=== PATIENT | female | born 1990 | race Caucasian/White ===

== ENCOUNTER 2016-12-07 15:17 | Outpatient (CLI) | payer MEDICAID ==
[~2016-12-07] VITALS: Ht 160 cm; Wt 67.3 kg
[~2016-12-07 15:17] MED LIST: METR500T PO; NITR-58 PO
[2016-12-07 15:36] VITALS: Ht 160 cm; Wt 67.3 kg
[2016-12-07 15:37] VITALS: BP 105/56; PULSE 69
[2016-12-07] MEDS ORDERED: PRENAT PO (15:38)
[2016-12-07 16:00] LABS: ADD UMIC YES; URINE BILIRUBIN (Dip) NEGATIVE (NEGATIVE); URINE BLOOD (Dip) TRACE (NEGATIVE); URINE COLOR LT. YELLOW (YELLOW); URINE GLUCOSE (Dip) NEGATIVE (NEGATIVE); URINE KETONES (Dip) NEGATIVE (NEGATIVE); URINE LEUKOCYTE ESTERASE (Dip) 1+ (NEGATIVE); URINE NITRITE (Dip) NEGATIVE (NEGATIVE); URINE TOTAL PROTEIN (Dip) NEGATIVE (NEGATIVE); URINE UROBILINOGEN (Dip) 0.2 E.U./dL (0.1-1.0)
--- NOTE | 2016-12-07 16:34 | RADRPT ---
PROCEDURE: Limited obstetric ultrasound CLINICAL INDICATION: Pain TECHNIQUE: Multiple transverse and longitudinal grayscale images of the pelvis were obtained garcia sabdominally and transvaginally.. COMPARISON: same day FINDINGS: The cervix is closed with a length of 4.1 cm. There is a single viable intrauterine gestation. Cardiac activity is present with 165 beats per min [place]. There is a breech presentation. The placenta is posterior. There is no evidence for an abruption or placenta previa. RPTAT: AA IMPRESSION: Cervix length measures 4.1 cm. .Hermes Chen MD, Date Time Electronically viewed and signed by .Hermes Chen MD, on 12/07/2016 16:34 .S/
[2016-12-07 16:35] LABS: BACTERIA,URINE RARE; SQUAMOUS EPITHELIAL CELL,UR FEW; URINE RBCS 0-2 /HPF (0)
--- NOTE | 2016-12-07 21:04 | CONS ---
Date/Time of Note Date/Time of Note DATE: 12/07/16 TIME: 21:00 Consultation Date/Type/Reason Admit Date/Time December 07, 2016 OB triage consult Reason for Consultation This patient is a 24 years old 3 para 2 both spontaneous vaginal delivery her estimated date of confinement is 02/23/2017 which makes her 28 weeks and 6 days now she came in complaining of abdominal pain on examination her general physical examination was normal abdomen was soft uterus was so heart tone was normal no contraction was noted under general vital signs her blood pressure was 105/56, pulse rate 60, respiration 18. And temperature 98.6 Laboratory study her urinalysis was completely normal On ultrasound study the cervix was closed with 4.1 cm in length there was a single viable uterine gestation with heart tone of 161 5 in breech presentation placenta was posterior Laboratory Tests Test 12/07/16 15:45 Urine Color LT. YELLOW Urine Clarity CLEAR Urine pH 6.5 Urine Specific [place] <=1.005 Urine Ketones NEGATIVE Urine Nitrite NEGATIVE Urine Bilirubin NEGATIVE Urine Urobilinogen 0.2 E.U./dL Urine Leukocyte Esterase 1+ Urine Microscopic RBC 0-2/HPF Urine Microscopic WBC 2-5/HPF Urine Squamous Epithelial Cells FEW Urine Bacteria RARE Urine Hemoglobin TRACE Urine Glucose NEGATIVE% Urine Total Protein NEGATIVE Constitutional: No chills, No diaphoresis, No disoriented, No febrile, No improved, No no complaints, No other, No poor po, No requiring IVF, No requiring O2 Eyes: No discharge, No no complaints, No other, No pain, No redness, No visual change ENT: No bleeding, No congestion, No discharge, No dysphagia, No no complaints, No other, No pain, No sore throat Respiratory: No cough, No no complaints, No other, No pain, No pleuritic pain, No shortness of breath, No sputum, No wheezing Cardiovascular: No chest pain, No edema, No lightheadedness, No no complaints, No orthopenea, No other, No palpitations, No paroxysmal nocturnal dyspnea Gastrointestinal: No blood, No constipation, No decreased appetite, No diarrhea , No flatus, No nausea, No no complaints, No other, No pain, No passing stool, No vomiting Genitourinary: other (Pelvic exam was not performed due to lack of contraction) , No bleeding, No discharge, No dysuria, No flank pain, No hematuria, No no complaints Musculoskeletal: No back pain, No bone/joint pain, No neck pain, No no complaints, No other, No restricted range of motion, No swelling Skin: No bruising, No erythema, No laceration, No no complaints, No other, No pruritis, No rash, No skin lesions Neurologic: other (Knee-jerk reflex were no), No confusion, No dizziness, No focal-weakness, No headache, No no complaints , No seizure, No syncope Additional Comments With these negative findings patient was reassured and was discharged home to be followed in her clinic and return to the triage area in case of a contractions bleeding or any other major complaint Social History Smoking Status: Never smoker Exam/Review of Systems Vital Signs Vitals Vital Signs Date Time Temp Pulse Resp B/P Pulse Ox O2 Delivery O2 Flow Rate FiO2 12/07/16 15:37 98.6 69 105/56 Results Results 24 hrs Laboratory Tests Test 12/07/16 15:45 Urine Color LT. YELLOW Urine Clarity CLEAR Urine pH 6.5 Urine Specific [place] <=1.005 L Urine Ketones NEGATIVE Urine Nitrite NEGATIVE Urine Bilirubin NEGATIVE Urine Urobilinogen 0.2 E.U./dL Urine Leukocyte Esterase 1+ H Urine Microscopic RBC 0-2 Urine Microscopic WBC 2-5 Urine Squamous Epithelial Cells FEW Urine Bacteria RARE Urine Hemoglobin TRACE Urine Glucose NEGATIVE Urine Total Protein NEGATIVE LILIANA RILEY MD Dec 07, 2016 21:04
== END 2016-12-07 16:55 | disposition home or self-care (01) ==
LOC: L-D 15:17 → OBT 15:17
PROVIDERS: ATTEND Obstetrics & Gynecology
DX: O26.892 Other specified pregnancy related conditions, second trimester (principal); R10.9 Unspecified abdominal pain; Z3A.28 28 weeks gestation of pregnancy
CPT/HCPCS: 76817; 81001; 87086; Z7500; G0463

== ENCOUNTER 2017-02-15 12:09 | Outpatient (CLI) | payer MEDICAID ==
[~2017-02-15] VITALS: Ht 167.6 cm; Wt 74.7 kg
[~2017-02-15 12:09] MED LIST changes: -METR500T PO; -NITR-58 PO; +PRENAT PO
[2017-02-15 12:37] VITALS: BP 100/60; PULSE 78; RESP 18; Ht 167.6 cm; Wt 74.7 kg
--- NOTE | 2017-02-15 15:21 | RADRPT ---
PROCEDURE: US OB biophysical profile. CLINICAL INDICATION: decreased movements, contractions TECHNIQUE: Multiple sonographic images of the pelvis were obtained. The images were reviewed on a PACS workstation. COMPARISON: No prior studies are available for comparison. FINDINGS: There is a single viable intrauterine gestation. Cardiac activity is present with 137 beats per min [place]. There is a vertex presentation. The placenta is posterior. There is no evidence of placental abruption. There is a normal amount of amniotic fluid with an MIRELLA = 17.7 cm. Biophysical profile: movement 2/2 tone 2/2. breathing 2/2 MIRELLA 2/2 Total 02/06 RPTAT: AA . IMPRESSION: Normal biophysical profile. . .Hermes Chen MD, MD Date Time Electronically viewed and signed by .Hermes Chen MD, MD on 02/15/2017 15:21 .S/
--- NOTE | 2017-02-15 15:39 | CONS ---
Date/Time of Note Date/Time of Note DATE: 02/15/17 TIME: 15:34 Consultation Date/Type/Reason Admit Date/Time February 15, 2017 OB triage consult Reason for Consultation This patient is a 26 years old 3 para 2 ,both of her previous delivery by spontaneous vaginal, came in the triage area complaining of uterine contractions. Her estimated date of confinement is February 25 which makes her 38 weeks and 6 days now Her lab works so far in the clinic were normal ,blood pressure O+ ,hepatitis B surface antigen ,HIV ,RPR, GBS negative or nonreactive, rubella immune , Chlamydia gonorrhea were also both negative on examination she is a well-developed well-nourished patient . after her general vital signs are normal ;with blood pressure of 100/60 ,pulse 78, respiration 18, temperature 97, and oxygen saturation of 97 in room temperature Her abdomen was soft with occasional contractions, heart rate tracing were normal with good variability and occasional acceleration no decelerations , Bimanual pelvic examination was performed; the cervix was a 2 cm,60% ,-2 station , membrane was intact Constitutional: No chills, No diaphoresis, No disoriented, No febrile, No improved, No no complaints, No other, No poor po, No requiring IVF, No requiring O2 Eyes: No discharge, No no complaints, No other, No pain, No redness, No visual change ENT: No bleeding, No congestion, No discharge, No dysphagia, No no complaints, No other, No pain, No sore throat Respiratory: No cough, No no complaints, No other, No pain, No pleuritic pain, No shortness of breath, No sputum, No wheezing Cardiovascular: No chest pain, No edema, No lightheadedness, No no complaints, No orthopenea, No other, No palpitations, No paroxysmal nocturnal dyspnea Gastrointestinal: No blood, No constipation, No decreased appetite, No diarrhea , No flatus, No nausea, No no complaints, No other, No pain, No passing stool, No vomiting Genitourinary: other (Her pelvic exam as I mentioned was 2 cm dilated 60% effaced at -2 station of the head with intact membrane), No bleeding, No discharge, No dysuria, No flank pain, No hematuria, No no complaints Musculoskeletal: No back pain, No bone/joint pain, No neck pain, No no complaints, No other, No restricted range of motion, No swelling Skin: No bruising, No erythema, No laceration, No no complaints, No other, No pruritis, No rash, No skin lesions Neurologic: No confusion, No dizziness, No focal-weakness, No headache, No no complaints, No other, No seizure, No syncope Endocrine: No dry skin, No no complaints, No other, No polydypsia, No polyuria , No temp intolerance Additional Comments On ultrasound studies the report is a single viable intrauterine gestation with cardiac activity 137 bpm ,in vertex presentation ,placenta was posterior , amniotic fluid index is 17.7 cm, biophysical profile 02/06 With these positive finding patient was reassured and she will go home and 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
== END 2017-02-15 15:45 | disposition home or self-care (01) ==
LOC: OBT 12:09 → L-D 12:10 → OBT 15:45 → EDSTATUS 02-23 12:07
PROVIDERS: ATTEND Obstetrics & Gynecology
DX: O62.9 Abnormality of forces of labor, unspecified (principal); Z3A.38 38 weeks gestation of pregnancy
CPT/HCPCS: 76818; Z7500; G0463

== ENCOUNTER 2017-02-20 08:10 | Inpatient (IN) | payer MEDICAID ==
[~2017-02-20] VITALS: Ht 160 cm; Wt 74.9 kg
[~2017-02-20 08:10] MED LIST changes: +METR500T PO; +NITR-58 PO; +PREN1TAB62 PO
[2017-02-20] MEDS ORDERED: PRENAT PO (08:36)
[2017-02-20] MEDS ORDERED: FOLI-49 PO (08:36)
[2017-02-20 08:37] VITALS: Ht 160 cm; Wt 74.9 kg
[2017-02-20 08:38] VITALS: BP 117/71; PULSE 75; RESP 18
--- NOTE | 2017-02-20 09:09 | TRIAGE ---
OB Triage Datetime Report Generated by CPN: 02/20/2017 09:09 Datetime: 02/20/2017 08:46 Vaginal Exam Dilatation (cms): 5.0 Effacement (%): 80 Station: -2 Exam By: KHEMANI Vaginal Bleeding: None Cervix, Consistency: Soft Cervix, Position: Midposition Presentation 'A': Cephalic Datetime: 02/20/2017 08:38 Labor Evaluation Monitor Mode: External Heart Rate Monitor Mode: External US Datetime: 02/20/2017 08:22 Time of Arrival: 02/20/2017 08:05 EGA: 39.4 Arrived By: Ambulatory Arrived From: Home Chief Complaint: PT HERE C/O UC'S SINCE O530 Movement: Present Contractions: Irregular Rupture of Membranes: Denies Vaginal Bleeding: None Vaginal Discharge: Denies Recent Sexual Intercouse: Denies Abdominal Trauma: Not Applicable Patient Complaints: Contractions; Cramping; Back Pain Time Provider Notified: 02/20/2017 08:49 Provider Notified: ESHAGHIAN Initial Plan: EFM, SVE Datetime: 02/15/2017 12:35 Fall Risk Assessment Fall Score: 0 Fall Risk Score Definition: No Risk: No action required Datetime: 02/15/2017 12:34 EGA: 38.6 Datetime: 12/07/2016 15:33 EGA: 28.6 Fall Risk Assessment Fall Score: 0 Fall Risk Score Definition: No Risk: No action required
[2017-02-20] MEDS ORDERED: LACTATED RINGER'S 1,000 ML IV SCH (10:02)
[2017-02-20] MEDS ORDERED: LACTATED RINGER'S 1,000 ML IV PRN (10:02)
[2017-02-20] MEDS ORDERED: MISOPROSTOL 200 MCG TAB PR PRN ×2 (10:30→14:30)
[2017-02-20] MEDS ORDERED: CARBOPROST 250 MCG INJ IM PRN ×2 (10:30→14:30)
[2017-02-20] MEDS ORDERED: OXYTOCIN 30 UNITS/LR 500 ML IV PRN ×2 (10:30→14:30)
[2017-02-20] MEDS ORDERED: BUTORPHANOL 2 MG INJ IV PRN (10:30)
[2017-02-20] MEDS ORDERED: LIDOCAINE 1% (MPF) 30 ML INJ INJ PRN (10:30)
[2017-02-20] MEDS ORDERED: OXYTOCIN 30 UNITS/LR 500 ML IV SCH ×2 (10:30)
[2017-02-20] MEDS ORDERED: IBUPROFEN 600 MG TAB PO PRN (10:30)
[2017-02-20] MEDS ORDERED: METHYLERGONOVINE 0.2 MG INJ IM PRN ×2 (10:30→14:30)
[2017-02-20 10:49] LABS: BASOPHILS % 0.3 % (0.0-2.0); EOSINOPHILS # 0.1 10^3/ul (0.0-0.5); EOSINOPHILS % 0.8 % (0.0-7.0); HEMATOCRIT 39.1 % (37.0-47.0); HEMOGLOBIN 13.3 g/dl (12.0-16.0); LYMPHOCYTES # 3.2 10^3/ul (0.8-2.9); LYMPHOCYTES % 26.4 % (15.0-51.0); MEAN CORPUSCULAR HEMOGLOBIN 29.8 pg (29.0-33.0); MEAN CORPUSCULAR VOLUME 87.7 fl (82.0-101.0); MEAN PLATELET VOLUME 12.5 fl (7.4-10.4); MONOCYTE # 0.8 10^3/ul (0.3-0.9); MONOCYTES % 6.4 % (0.0-11.0); NEUTROPHILS % 65.8 % (39.0-77.0); PLATELET COUNT 225 10^3/UL (140-415); RED BLOOD COUNT 4.46 10^6/ul (4.20-5.40); RED CELL DISTRIBUTION WIDTH 13.6 % (11.5-14.5)
[2017-02-20 10:53] LABS: INR 0.86; PROTIME 11.7 Sec (12.2-14.2); PT RATIO 0.9
[2017-02-20 10:54] LABS: PARTIAL THROMBOPLASTIN TIME 27.9 Sec (25.0-35.0)
[2017-02-20] MEDS ORDERED: FENTAnyl 50 MCG/ML VIAL ONE (13:43)
[2017-02-20] MEDS ORDERED: LIDOCAINE 2%/EPI 30 ML INJ ONE (13:43)
[2017-02-20] MEDS ORDERED: FENTAnyl 2MCG/ML-ROPIV 0.2% 100 ML ONE (13:49)
--- NOTE | 2017-02-20 14:08 | PREOPHP ---
DATE OF ADMISSION: 02/20/2017 HISTORY OF PRESENT ILLNESS: Ms. Irma Godinez is a 26- year-old, 3, para 2, EDC 02/25/2017, intrauterine at 39 weeks and 3 days' gestational age, presented to triage in labor, with regular contractions since early this morning. She denies any vaginal bleeding or discharge. Her care took place at [facility]. ALLERGIES: NONE. MEDICATIONS: vitamins. PAST SURGICAL HISTORY: None. OBSTETRICAL HISTORY: Times 2 vaginal deliveries. GYNECOLOGICAL HISTORY: 14, regular, 3-4 days. Denies any sexually transmitted disease. Sexually active with 1 partner. SOCIAL HISTORY: Denies any smoking, drugs, or alcohol. FAMILY HISTORY: None. REVIEW OF SYSTEMS: All within normal except History of Present Illness. PHYSICAL EXAMINATION: HEENT: Within normal. LUNGS: CTA bilateral. CARDIAC: S1, S2. Regular rhythm. ABDOMEN: Gravid, nontender. Negative CVA bilateral. EXTREMITIES: Negative edema. No calf tenderness. VAGINAL: Exam on admission, 5, 70, -2. heart tracing category 1. TOCO contractions every 3-4 minutes. ASSESSMENT: Intrauterine at term, in labor. PLAN: Expectant vaginal delivery. Dictated By: Tu Reid MD /disha/lalitha /Document#: [id number] NEEMA
[2017-02-20] MEDS: LACTATED RINGER'S 1,000 ML IV* SCH ×2 (14:23→22:23)
--- NOTE | 2017-02-20 14:23 | LDN ---
Date/Time of Note Date/Time of Note DATE: 02/20/17 TIME: 14:22 Delivery Summary Weeks of Gestation 39 Placenta Delivered: Spontaneously Meconium: none Episiotomy: No Sponge & Needle done & correct: Yes All needle counts correct: Yes Any foreign bodies felt in the: No Problems: Infant Delivery Information Sex Sex: male Apgars 1 Minute: 9 5 Minute: 9 Suctioning Nose & mouth suctioned at jorge: No Delee suction performed: No Umbilical Cord Umbilical cord with: 3 Vessels Cord presentations: no nuchal cord Cord Blood was obtained: Yes CANDACE LAW MD Feb 20, 2017 14:23
[2017-02-20] MEDS ORDERED: BENZOCAINE 20% 56 ML SPRAY TOP PRN (14:30)
[2017-02-20] MEDS ORDERED: OXYCODONE/ASPIRIN (4.88/325) TAB PO PRN (14:30)
[2017-02-20] MEDS ORDERED: MINERAL OIL LIGHT 10 ML VIAL TOP ONE ×2 (14:30)
[2017-02-20] MEDS ORDERED: ONDANSETRON 4 MG INJ IV PRN (14:30)
[2017-02-20] MEDS ORDERED: WITCH HAZEL/GLYCERIN PAD PR PRN (14:30)
[2017-02-20 17:00] VITALS: BP 108/58; PULSE 81; RESP 19
[2017-02-20 17:30] VITALS: BP 105/58; PULSE 86; RESP 18
[2017-02-20] MEDS: IBUPROFEN 600 MG TAB PO SCH ×2 (17:47→23:52)
[2017-02-20 20:00] VITALS: BP 104/63; PULSE 72; RESP 20
[2017-02-20] MEDS: OXYCODONE/ASPIRIN (4.88/325) TAB PO PRN (23:06)
[2017-02-21] VITALS: BP 110/60; PULSE 62; RESP 18
[2017-02-21 04:00] VITALS: BP 112/62; PULSE 68; RESP 20
[2017-02-21] MEDS: IBUPROFEN 600 MG TAB PO SCH ×3 (05:38→17:14)
[2017-02-21 07:55] LABS: BASOPHIL # 0.1 10^3/ul (0.0-0.1); BASOPHILS % 0.4 % (0.0-2.0); EOSINOPHILS # 0.2 10^3/ul (0.0-0.5); EOSINOPHILS % 1.2 % (0.0-7.0); HEMATOCRIT 32.1 % (37.0-47.0); HEMOGLOBIN 11.3 g/dl (12.0-16.0); LYMPHOCYTES # 3.7 10^3/ul (0.8-2.9); LYMPHOCYTES % 28.8 % (15.0-51.0); MEAN CORPUSCULAR HGB CONC 35.2 g/dl (32.0-37.0); MEAN CORPUSCULAR VOLUME 88.2 fl (82.0-101.0); MEAN PLATELET VOLUME 12.2 fl (7.4-10.4); MONOCYTE # 0.9 10^3/ul (0.3-0.9); MONOCYTES % 6.5 % (0.0-11.0); NEUTROPHILS % 62.6 % (39.0-77.0); PLATELET COUNT 174 10^3/UL (140-415); RED BLOOD COUNT 3.64 10^6/ul (4.20-5.40); RED CELL DISTRIBUTION WIDTH 13.7 % (11.5-14.5)
[2017-02-21 08:10] VITALS: BP 101/52; PULSE 60; RESP 19
[2017-02-21 12:15] VITALS: BP 101/49; PULSE 59; RESP 20
--- NOTE | 2017-02-21 13:16 | QN ---
Documentation Comment Progress note day 1 Patient seen and evaluated positive ambulation tolerating diet positive flatulence positive bowel movement Awake alert and oriented 3 Vital signs stable afebrile Abdomen soft nontender negative distention uterine fundus below umbilicus Extremity negative edema no calf tenderness Assessment status post vaginal delivery day 1 stable afebrile Plan iron supplement discharge home tomorrow and follow-up in the office in 3 weeks CANDACE LAW MD Feb 21, 2017 13:15
--- NOTE | 2017-02-21 13:16 | PD.PPDC ---
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
--- NOTE | 2017-02-21 13:18 | DS ---
Date/Time of Note Date/Time of Note DATE: 02/21/17 TIME: 13:17 Obstetrical Discharge Record Final Diagnosis Final Diagnosis: Term delivered Vaginal Delivery Obstetrical Delivery: Spontaneous Condition on Discharge Physical Assessment Voiding: Yes Bowel Movement: Yes Breast: Soft, non-tender, Filling Fundus: Firm Calf Tenderness: No Patient Condition: Fair CANDACE LAW MD Feb 21, 2017 13:18
[2017-02-21 16:15] VITALS: BP 110/55; PULSE 65; RESP 18
[2017-02-21] MEDS: OXYCODONE/ASPIRIN (4.88/325) TAB PO PRN (17:15)
[2017-02-21 20:00] VITALS: BP 112/55; PULSE 66; RESP 18
[2017-02-21] MEDS: FERROUS SULFATE (EC) 325 MG TAB PO SCH (21:19)
[2017-02-22] MEDS: IBUPROFEN 600 MG TAB PO SCH ×3 (00:24→11:50)
[2017-02-22] MEDS: OXYCODONE/ASPIRIN (4.88/325) TAB PO PRN (03:36)
[2017-02-22 04:00] VITALS: BP 104/53; PULSE 59; RESP 18
[2017-02-22 08:15] VITALS: BP 90/48; PULSE 57; RESP 16
[2017-02-22] MEDS: FERROUS SULFATE (EC) 325 MG TAB PO SCH (09:39)
== END 2017-02-22 16:39 | disposition home or self-care (01) | DRG 775 ==
LOC: OBT 08:10 → L-D 08:10 → OBT 08:42 → L-D 08:57 → PP1 16:46
PROVIDERS: ADMIT Obstetrics & Gynecology; ATTEND Obstetrics & Gynecology
PROC: 10E0XZZ Delivery of Products of Conception, External Approach (ICD-10-PCS; principal; 2017-02-20)
DX: O80 Encounter for full-term uncomplicated delivery (principal); Z37.0 Single live birth; Z3A.39 39 weeks gestation of pregnancy
CPT/HCPCS: 36415; 62319; 85025; 85610; 85730; 86592; 86900; 86901; 87340; G0463; J0595; J3010; J7120

== ENCOUNTER 2017-06-27 01:46 | Emergency (ER) | END 2017-06-27 08:09 | disposition home or self-care (01) ==

== ENCOUNTER 2017-08-15 17:46 | Emergency (ER) | END 2017-08-15 22:25 | disposition home or self-care (01) ==

== ENCOUNTER 2018-01-03 14:22 | Emergency (ER) | END 2018-01-03 16:54 | disposition home or self-care (01) ==

== ENCOUNTER 2018-07-21 04:39 | Emergency (ER) | payer MEDICAID ==
[~2018-07-21] VITALS: Wt 57.7 kg
[~2018-07-21 04:39] MED LIST changes: +CEPH-443 PO; +HYDR-4011 PO; +IBUP-1542 PO; +METH750T93 PO; -METR500T PO; +NAPR-688 PO; -NITR-58 PO; -PREN1TAB62 PO
[2018-07-21 04:41] VITALS: BP 114/69; PULSE 66; RESP 18
[2018-07-21] MEDS ORDERED: KETOROLAC 30 MG INJ IM STA (04:57)
--- NOTE | 2018-07-21 05:14 | ERD ---
ER Documentation Chief Complaint Chief Complaint DYSURIA X'S 1 DAY HPI This is a 27-year-old female who presents to the emergency department with complaints of dysuria, hematuria for about a day. LMP: June 23, 2018. . Denies headache, head injury, loss of consciousness, dizziness, neck pain, neck stiffness, throat pain, difficulty swallowing, difficulty breathing lying flat, shoulder pain, chest pain, back pain, abdominal pain, nausea, vomiting, constipation, diarrhea, or possibility being , loss of bowel and bladder control, trauma, injury, falls, difficulty walking due to pain, numbness or tingling sensation, calf pain, recent travel, recent major surgery in the last 3 weeks, calf pain, recent long travel, recent exposure to any illness, recent antibiotic use in the last 3 months, fever, chills, seizures. Past medical history: Surgical history: Social: Denies smoking, use of alcoholic beverages, use of illegal drugs. ROS All systems reviewed and are negative except as per history of present illness. Medications Home Meds Active Scripts Ciprofloxacin Hcl* (Ciprofloxacin Hcl*) 500 Mg Tablet, 500 MG PO BID for 5 Days, #10 TAB Prov:MELY ZAMORA MD 07/24/18 Ondansetron Hcl* (Zofran*) 4 Mg Tablet, 4 MG PO Q8H PRN for NAUSEA AND/OR VOMITING, #30 TAB Prov:PASILATRAE ALAN F 07/21/18 Acetaminophen* (Tylophen*) 500 Mg Capsule, 1 CAP PO Q6H PRN for PAIN AND OR ELEVATED TEMP, #20 CAP Prov:PASILABANTRAE F 07/21/18 Ibuprofen* (Motrin*) 600 Mg Tab, 600 MG PO Q6H PRN for PAIN AND OR ELEVATED TEMP, #30 TAB Prov:PASILATRAE ALAN F 07/21/18 Phenazopyridine Hcl* (Pyridium*) 200 Mg Tab, 200 MG PO TID PRN for URINARY PAIN, #6 TAB Prov:PASILABANTRAE F 07/21/18 Cephalexin* (Keflex*) 500 Mg Capsule, 500 MG PO TID for 7 Days, CAP Prov:PASILABANTRAE F 07/21/18 Ibuprofen* (Motrin*) 600 Mg Tab, 600 MG PO Q6, #20 TAB Prov:PHOEBE SHEETS MD 01/03/18 Cephalexin* (Keflex*) 500 Mg Capsule, 500 MG PO QID for 7 Days, CAP Prov:PHOEBE SHEETS MD 01/03/18 Hydrocodone/Acetaminophen ([place] 5-325 Tablet) 1 Each Tablet, 1 EACH PO Q6, #20 TAB Prov:GIANLUCA CROW DO 08/15/17 Naproxen* (Naproxen*) 500 Mg Tablet, 500 MG PO BID PRN for PAIN, #20 TAB Prov:GIANLUCA CROW DO 08/15/17 Methocarbamol* (Robaxin*) 750 Mg Tablet, 750 MG PO Q6H PRN for MUSCLE SPASMS, #17 TAB Prov:GIANLUCA CROW DO 08/15/17 Cephalexin* (Keflex*) 500 Mg Capsule, 500 MG PO TID for 7 Days, CAP Prov:JONO DELGADO PA-C 06/27/17 Reported Medications Multivit/Min/Fol Ac/Iron/Pren* ( S*) 1 Tab Tab, 1 TAB PO DAILY, TAB 02/20/17 Allergies Allergies: Coded Allergies: No Known Allergy (Unverified , 06/27/17) PMhx/Soc Medical and Surgical Hx: pt denies Medical Hx, pt denies Surgical Hx History of Surgery: No Anesthesia Reaction: No Hx Neurological Disorder: No Hx Respiratory Disorders: No Hx Cardiac Disorders: No Hx Psychiatric Problems: No Hx Miscellaneous Medical Probl: No Hx Alcohol Use: No Hx Substance Use: No Hx Tobacco Use: No Smoking Status: Never smoker Physical Exam Vitals Physical Exam Const: No acute distress Head: Atraumatic Eyes: Normal Conjunctiva ENT: Normal External Ears, Nose and Mouth. Neck: Full range of motion. No meningismus. Resp: Clear to auscultation bilaterally Cardio: Regular rate and rhythm, no murmurs Abd: Soft, non tender, non distended. Normal bowel sounds. Negative Good sign. Negative Sly sign(heel-jar test). Negative Rovsing sign. Negative psoas signs. Able to jump 10 times without developing lower abdominal pain. Skin: No petechiae or rashes Back: No midline or flank tenderness. no CVA tenderness. Ext: No cyanosis, or edema Neur: Awake and alert. No neurological deficits. Psych: Normal Mood and Affect Result Diagram: 07/21/18 0521 07/21/18 0521 Results 24 hrs Laboratory Tests Test 07/21/18 04:53 07/21/18 05:04 07/21/18 05:05 07/21/18 05:21 Urine Color RED Urine Clarity CLEAR Urine pH 7.0 Urine Specific 1.001 [place] Urine Ketones NEGATIVE mg/dL Urine Nitrite NEGATIVE mg/dL Urine Bilirubin NEGATIVE mg/dL Urine NEGATIVE mg/dL Urobilinogen Urine Leukocyte 3+ Sriram/ul Esterase Urine Microscopic 1 /HPF RBC Urine Microscopic 51 /HPF WBC Urine Squamous FEW /HPF Epithelial Cells Urine Bacteria FEW /HPF Urine Hemoglobin 3+ mg/dL Urine Glucose NEGATIVE mg/dL Urine Total 1+ mg/dl Protein Bedside Urine pH 7.0 (LAB) Bedside Urine 1+ Protein (LAB) Bedside Urine Negative Glucose (UA) Bedside Urine Negative Ketones (LAB) Bedside Urine 3+ Blood Bedside Urine Negative Nitrite (LAB) Bedside Urine 3+ Leukocyte Esteras e (L POC Beta HCG, NEGATIVE Qualitative White Blood Count 12.3 10^3/ul Red Blood Count 4.61 10^6/ul Hemoglobin 13.4 g/dl Hematocrit 41.0 % Mean Corpuscular 88.9 fl Volume Mean Corpuscular 29.1 pg Hemoglobin Mean Corpuscular 32.7 g/dl Hemoglobin Concen t Red Cell 13.2 % Distribution Width Platelet Count 233 10^3/UL Mean Platelet 11.8 fl Volume Immature 0.200 % Granulocytes % Neutrophils % 61.3 % Lymphocytes % 29.9 % Monocytes % 6.9 % Eosinophils % 1.3 % Basophils % 0.4 % Nucleated Red 0.0 /100WBC Blood Cells % Immature 0.020 10^3/ul Granulocytes # Neutrophils # 7.5 10^3/ul Lymphocytes # 3.7 10^3/ul Monocytes # 0.8 10^3/ul Eosinophils # 0.2 10^3/ul Basophils # 0.1 10^3/ul Nucleated Red 0.0 10^3/ul Blood Cells # Sodium Level 141 mmol/L Potassium Level 4.2 mmol/L Chloride Level 104 mmol/L Carbon Dioxide 28 mmol/L Level Anion Gap 9 Blood Urea 12 mg/dl Nitrogen Creatinine 0.57 mg/dl Est Glomerular > 60 mL/min Filtrat Rate mL/min Glucose Level 92 mg/dl Calcium Level 9.5 mg/dl Total Bilirubin 0.1 mg/dl Direct Bilirubin 0.00 mg/dl Indirect 0.1 mg/dl Bilirubin Aspartate Amino 24 IU/L Transf (AST/SGOT) Alanine 16 IU/L Aminotransferase (ALT/SGPT) Alkaline 111 IU/L Phosphatase Total Protein 7.6 g/dl Albumin 4.5 g/dl Globulin 3.10 g/dl Albumin/Globulin 1.45 Ratio Current Medications Medications Dose Sig/Bogdan Start Time Status Last (Trade) Ordered Route PRN Stop Time Admin Dose Reason Admin Ketorolac 30 mg ONCE STAT 07/21/18 DC 07/21/18 Tromethamine IM 04:57 05:11 (Toradol) 07/21/18 04:58 Procedures/MDM Diagnostic tests: POC urine : Negative. Urinalysis: UTI. Culture urine: Sent. Blood works: Reviewed. Ultrasound of the kidneys: Remarkable renal ultrasound. Treatment: Toradol IM. Re-evaluation: Denies pain. No CVA tenderness. No abdominal tenderness. Able to jump 10 times without developing lower abdominal pain. Differential diagnosis I have low suspicion for sepsis, septic stone, obstructing kidney stone, pyelonephritis, appendicitis, cholecystitis, pancreatitis, diverticulitis, bowel obstruction. Final diagnosis: UTI. Prescription: Keflex. Motrin. Tylenol. Zofran. Follow-up with PCP in the next 24-48 hours. Come back here in the emergency dep artment for any new symptoms or any worsening symptoms. All questions and concerns were answered. Patient and family members verbalized understanding and agreed with plan of care. Hemodynamically stable on discharge. Departure Diagnosis: Primary Impression: Dysuria Additional Impression: UTI (urinary tract infection) Condition: Stable Additional Instructions: Follow-up with PCP in the next 24-48 hours. Come back here in the emergency department for any new symptoms or any worsening symptoms. TRAE KINNEY Jul 21, 2018 05:13
[2018-07-21] MEDS ORDERED: CEPH-443 PO (06:12)
[2018-07-21] MEDS ORDERED: PHEN-538 PO (06:12)
[2018-07-21] MEDS ORDERED: ONDA4TAB8 PO (06:13)
[2018-07-21] MEDS ORDERED: ACET500C5 PO (06:13)
[2018-07-21] MEDS ORDERED: IBUP-1542 PO (06:13)
[2018-07-24] MEDS ORDERED: CIPR500T4 PO (17:25)
== END 2018-07-21 06:43 | disposition home or self-care (01) ==
LOC: FTE 04:39
DX: N39.0 Urinary tract infection, site not specified (principal); R10.2 Pelvic and perineal pain
CPT/HCPCS: 76775; 80053; 81001; 81025; 85025; 87086; 96372; J1885; Z7502; 81003

== ENCOUNTER 2019-02-21 01:48 | Emergency (ER) | payer MEDICAID ==
[~2019-02-21] VITALS: Ht 157.5 cm; Wt 60.7 kg
[~2019-02-21 01:48] MED LIST changes: +ACET500C5 PO; +CIPR500T4 PO; +ONDA4TAB8 PO; +PHEN-538 PO
[2019-02-21 01:54] VITALS: Ht 157.5 cm; Wt 60.7 kg
[2019-02-21] MEDS ORDERED: ONDANSETRON (ODT) 4 MG TAB ODT STA (03:22)
[2019-02-21] MEDS ORDERED: HYDROCODONE/APAP (5/325) TAB PO ONE (03:30)
[2019-02-21 03:56] VITALS: BP 105/69; PULSE 67; RESP 18
[2019-02-21] MEDS ORDERED: IBUPROFEN 800 MG TAB PO ONE (04:00)
[2019-02-21] MEDS ORDERED: FAMOTIDINE 20 MG TAB PO ONE (04:00)
== END 2019-02-21 03:58 | disposition home or self-care (01) ==
LOC: FTE 01:48
DX: R10.2 Pelvic and perineal pain (principal)
CPT/HCPCS: 36415; 76856; 80053; 81001; 81025; 85025; 87086; Z7502; Z7610